=== PATIENT | male | born 1995 | race Caucasian/White ===

== ENCOUNTER → 2020-12-14 | Outpatient (CLI) | payer OTHER ==
[2020-12-14 12:22] LABS: HEMOGLOBIN 16.7 gm/dl (14.0-17.5); RED BLOOD COUNT 5.69 M/UL (4.20-5.50)
[2020-12-14 12:40] LABS: BUN/CREATININE RATIO 16 (0-10)
[2020-12-15 08:12] LABS: THYROXINE (T4) 7.6 ug/dL (4.5-12.0); TRIIODOTHYRONINE (T3) 153 ng/dL (71-180); VITAMIN D, 25-HYDROXY 19.1 ng/mL (30.0-100.0)
[2020-12-15 09:12] LABS: RHEUMATOID ARTHRITIS FACTOR <10.0 IU/mL (0.0-13.9)
== END ==
LOC: LAB 11:04
PROVIDERS: Nurse Practitioner Family
DX: L40.0 Psoriasis vulgaris (principal); R53.83 Other fatigue; M25.50 Pain in unspecified joint; E78.5 Hyperlipidemia, unspecified
CPT/HCPCS: 36415; 80053; 80061; 84436; 84443; 84480; 85025; 85652; 86038; 86140; 86431

== ENCOUNTER → 2021-01-30 | Outpatient (CLI) | payer OTHER ==
[2021-01-31 09:14] LABS: HBSAG SCREEN Negative (Negative); HEP A AB, IGM Negative (Negative); HEP B CORE AB, IGM Negative (Negative); HEP C VIRUS AB <0.1 (0.0-0.9); VITAMIN D, 25-HYDROXY 15.3 ng/mL (30.0-100.0)
== END ==
LOC: LAB 08:48
PROVIDERS: Nurse Practitioner Family
DX: R74.8 Abnormal levels of other serum enzymes (principal); E55.9 Vitamin D deficiency, unspecified
CPT/HCPCS: 36415; 80074; 80076

== ENCOUNTER 2021-02-06 09:17 | Emergency (ER) | payer OTHER ==
[2021-02-06 09:51] LABS: HEMOGLOBIN 17.9 gm/dl (14.0-17.5); RED BLOOD COUNT 6.05 M/UL (4.20-5.50); WHITE BLOOD COUNT 7.9 K/UL (4.5-11.0)
[2021-02-06 10:19] LABS: BUN/CREATININE RATIO 18 (0-10)
== END 2021-02-06 12:38 | disposition home or self-care (01) ==
LOC: ER1 09:17
PROVIDERS: Emergency Medicine
DX: I86.1 Scrotal varices (principal); R10.9 Unspecified abdominal pain
CPT/HCPCS: 76870; 80053; 81001; 83690; 85025; 96374; 96375; 99284

== ENCOUNTER → 2021-03-14 | Outpatient (CLI) | payer OTHER | LOC: EXRD 03-11 09:30 → KOH-I 10:27 | DX: R94.5 Abnormal results of liver function studies (principal); K76.0 Fatty (change of) liver, not elsewhere classified | CPT/HCPCS: 76700 ==

== ENCOUNTER → 2021-12-10 | Outpatient (CLI) | payer BC ==
[2021-12-10 10:04] LABS: HEMOGLOBIN 17.8 gm/dl (14.0-17.5); RED BLOOD COUNT 5.99 M/UL (4.20-5.50); WHITE BLOOD COUNT 10.2 K/UL (4.5-11.0)
[2021-12-11 07:12] LABS: ESTIM. AVG GLU (EAG) 126 mg/dL (.)
[2021-12-11 08:15] LABS: A/G RATIO 1.6 (1.2-2.2); ALKALINE PHOSPHATASE, S 76 IU/L (44-121); ALT (SGPT) 103 IU/L (0-44); AST (SGOT) 55 IU/L (0-40); BILIRUBIN, TOTAL 0.4 mg/dL (0.0-1.2); BUN 12 mg/dL (6-20); BUN/CREATININE RATIO 16 (9-20); CALCIUM, SERUM 9.7 mg/dL (8.7-10.2); CARBON DIOXIDE, TOTAL 22 mmol/L (20-29); CHLORIDE, SERUM 101 mmol/L (96-106); CHOLESTEROL, TOTAL 234 mg/dL (100-199); CREATININE, SERUM 0.75 mg/dL (0.76-1.27); EGFR IF AFRICN AM 146 (>59); EGFR IF NONAFRICN AM 127 (>59); GLUCOSE, SERUM 104 mg/dL (65-99); HDL CHOLESTEROL 24 mg/dL (>39); LDL CHOLESTEROL CALC 108 mg/dL (0-99); LDL/HDL RATIO 4.5 ratio (0.0-3.6); POTASSIUM, SERUM 4.4 mmol/L (3.5-5.2); PROTEIN, TOTAL, SERUM 7.8 g/dL (6.0-8.5); SODIUM, SERUM 139 mmol/L (134-144); T. CHOL/HDL RATIO 9.8 ratio (0.0-5.0); TRIGLYCERIDES 587 mg/dL (0-149)
[2021-12-11 09:16] LABS: VITAMIN D, 25-HYDROXY 12.2 ng/mL (30.0-100.0)
== END ==
LOC: LAB 09:12
PROVIDERS: Nurse Practitioner Family
DX: Z13.1 Encounter for screening for diabetes mellitus (principal); Z13.220 Encounter for screening for lipoid disorders; L40.9 Psoriasis, unspecified; E55.9 Vitamin D deficiency, unspecified; K21.9 Gastro-esophageal reflux disease without esophagitis; R94.5 Abnormal results of liver function studies; R53.83 Other fatigue
CPT/HCPCS: 36415; 80053; 80061; 83036; 84443; 85025

== ENCOUNTER → 2022-02-27 | Outpatient (CLI) | payer BC ==
[2022-02-27 09:35] LABS: RED BLOOD COUNT 5.73 M/UL (4.20-5.50); WHITE BLOOD COUNT 6.9 K/UL (4.5-11.0)
[2022-02-27 09:55] LABS: BUN/CREATININE RATIO 21 (0-10)
[2022-02-28 10:16] LABS: HBSAG SCREEN Negative (Negative); HEP A AB, IGM Negative (Negative); HEP B CORE AB, IGM Negative (Negative); HEP C VIRUS AB <0.1 (0.0-0.9)
[2022-03-01 22:10] LABS: QUANTIFERON MITOGEN VALUE >10.00 IU/mL (.); QUANTIFERON NIL VALUE 0.02 IU/mL (.); QUANTIFERON TB1 AG VALUE 0.03 IU/mL (.); QUANTIFERON TB2 AG VALUE 0.03 IU/mL (.); QUANTIFERON-TB GOLD PLUS Negative (Negative)
== END ==
LOC: LAB 08:34
PROVIDERS: Physician Assistant Medical
DX: L40.0 Psoriasis vulgaris (principal); Z79.899 Other long term (current) drug therapy
CPT/HCPCS: 36415; 80053; 80074; 85027